=== PATIENT | female | born 1950 | race African-American/Black ===

== ENCOUNTER 2017-01-19 19:45 | Emergency (ER) | payer BC ==
[2017-01-19 19:49] VITALS: BP 139/71; PULSE 84; RESP 20; TEMP 98.4; O2SAT 100
[2017-01-19] MEDS ORDERED: SODIUM CHLORIDE 0.9% FLUSH 5 ML FLUSH IVF PRN (21:30)
[2017-01-19] MEDS ORDERED: KETOROLAC TROMETHAMINE 30 MG/ML (IVP) VIAL IV PUSH ONE (21:45)
[2017-01-19] MEDS ORDERED: ONDANSETRON HCL 4 MG/2 ML VIAL IV PUSH ONE (21:45)
[2017-01-19 21:51] VITALS: BP 152/67; PULSE 83; RESP 20; TEMP 97.8; O2SAT 95
[2017-01-19] MEDS ORDERED: AMLO5TAB2 PO (22:01)
[2017-01-19] MEDS ORDERED: ROSU1TAB8 PO (22:01)
[2017-01-19] MEDS ORDERED: DIOV160T3 PO (22:01)
[2017-01-19] MEDS ORDERED: CALC600T10 PO (22:01)
[2017-01-19] MEDS ORDERED: CALC600T25 (22:01)
[2017-01-19 22:07] LABS: CHLORIDE 104 MEQ/L (98-107); POTASSIUM 3.3 MEQ/L (3.5-5.1); SODIUM (NA) 141 MEQ/L (136-145)
[2017-01-19 22:11] LABS: ANION GAP 11 MEQ/L (5-15); BICARBONATE 26.1 MEQ/L (21.0-32.0); BLOOD UREA NITROGEN 13 MG/DL (7-18)
--- NOTE | 2017-01-19 22:12 | PD ---
HPI Chief Complaint: Abdominal Pain Time Seen by Provider: 21:26 Travel History International Travel<30 days: No Contact w/Intl Traveler<30days: No Traveled to known affect area: No History of Present Illness HPI Patient is 66-year-old female presents emergency Department with acute onset abdominal pain approximately 2 hours prior to arrival. Patient states she did also have nausea without vomiting no diarrhea no constipation. Denies any fevers. Patient states this never happened to her before. Patient is a nurse at the [employer] and is concerned that she might have an obstruction. Her only surgery in the past as a tubal ligation. Patient states her abdominal pain is starting to resolve currently. Describes it as cramping in nature periumbilical and now radiating throughout her entire abdomen. [facility] Past Medical History Narrative Medical Patient with a history of hyperlipidemia, hypertension, tubal ligation, social alcohol. Family history noncontributory. Social History Tobacco Use: No Allergies-Medications (Allergen,Severity, Reaction): Coded Allergies: No Known Allergies (Unverified , 01/19/17) Reported Meds & Prescriptions Reported Meds & Active Scripts Active Reported Calcium + D3 (Calcium Carbonate-Cholecalciferol) 600-200 Mg-Unit Tab 1 Tab PO BID Rosuvastatin (Rosuvastatin Calcium) 20 Mg Tab 20 Mg PO DAILY Diovan Hct (Valsartan-Hydrochlorothiazide) 160-12.5 Mg Tab 1 Tab PO DAILY Amlodipine (Amlodipine Besylate) 5 Mg Tab 5 Mg PO DAILY Review of Systems Except as stated in HPI: all other systems reviewed are Neg Physical Exam Narrative GENERAL: Well-developed well-nourished no apparent distress SKIN: Warm and dry. HEAD: Atraumatic. Normocephalic. EYES: Pupils equal and round. No scleral icterus. No injection or drainage. ENT: No nasal bleeding or discharge. Mucous membranes pink and moist. NECK: Trachea midline. No JVD. CARDIOVASCULAR: Regular rate and rhythm. No murmur appreciated. RESPIRATORY: No accessory muscle use. Clear to auscultation. Breath sounds equal bilaterally. GASTROINTESTINAL: Abdomen soft, non-tender, nondistended. Hepatic and splenic margins not palpable. No peritoneal signs, no rebound no percussive tenderness. Psoas and obturator negative. Dull to percussion. No CVA tenderness. MUSCULOSKELETAL: No obvious deformities. No clubbing. No cyanosis. No edema. NEUROLOGICAL: Awake and alert. No obvious cranial nerve deficits. Motor grossly within normal limits. Normal speech. PSYCHIATRIC: Appropriate mood and affect; insight and judgment normal. Data Data Last Documented VS Vital Signs Date Time Temp Pulse Resp B/P Pulse Ox O2 Delivery O2 Flow Rate FiO2 01/20/17 01:11 83 18 148/67 98 Room Air 01/19/17 23:13 97.7 Orders Complete Blood Count With Diff (01/19/17 21:26) Comprehensive Metabolic Panel (01/19/17 21:) Lipase (01/19/17 21:) Lactic Acid (01/19/17:26) Prothrombin Time / Inr (Pt) (01/19/17:) Act Partial Throm Time (Ptt) (01/19/17:) Urinalysis - C+S If Indicated (01/19/17 21:26) Iv Access Insert/Monitor (01/19/17 21:26) Ecg Monitoring (01/19/17 21:26) Oximetry (01/19/17:26) Sodium Chloride 0.9% Flush (Ns Flush) (01/19/17 21:30) Electrocardiogram (01/19/17 21:26) Ketorolac Inj (Toradol Inj) (01/19/17 21:45) Ondansetron Inj (Zofran Inj) (01/19/17 21:45) Ct Abd/Pel W Iv Contrast(Rout) (01/19/17 ) Sodium Chlor 0.9% 1000 Ml Inj (Ns 1000 M (01/19/17 23:00) Urine Culture (01/19/17 23:00) Iohexol 350 Inj (Omnipaque 350 Inj) (01/19/17 23:36) Labs Laboratory Tests Test 01/19/17 01/19/17 21:40 23:00 White Blood Count 18.8 TH/MM3 Red Blood Count 4.94 MIL/MM3 Hemoglobin 12.9 GM/DL Hematocrit 39.5 % Mean Corpuscular Volume 79.9 FL Mean Corpuscular Hemoglobin 26.1 PG Mean Corpuscular Hemoglobin 32.7 % Concent Red Cell Distribution Width 14.3 % Platelet Count 356 TH/MM3 Mean Platelet Volume 8.4 FL Neutrophils (%) (Auto) 85.1 % Lymphocytes (%) (Auto) 8.8 % Monocytes (%) (Auto) 2.8 % Eosinophils (%) (Auto) 0.6 % Basophils (%) (Auto) 2.7 % Neutrophils # (Auto) 16.0 TH/MM3 Lymphocytes # (Auto) 1.7 TH/MM3 Monocytes # (Auto) 0.5 TH/MM3 Eosinophils # (Auto) 0.1 TH/MM3 Basophils # (Auto) 0.5 TH/MM3 CBC Comment AUTO DIFF Differential Comment AUTO DIFF CONFIRMED Prothrombin Time 10.7 SEC Prothromb Time International 1.0 RATIO Ratio Activated Partial 26.1 SEC Thromboplast Time Sodium Level 141 MEQ/L Potassium Level 3.3 MEQ/L Chloride Level 104 MEQ/L Carbon Dioxide Level 26.1 MEQ/L Anion Gap 11 MEQ/L Blood Urea Nitrogen 13 MG/DL Creatinine 1.20 MG/DL Estimat Glomerular Filtration 55 ML/MIN Rate Random Glucose 179 MG/DL Lactic Acid Level 2.2 mmol/L Calcium Level 9.1 MG/DL Total Bilirubin 0.3 MG/DL Aspartate Amino Transf 15 U/L (AST/SGOT) Alanine Aminotransferase 22 U/L (ALT/SGPT) Alkaline Phosphatase 59 U/L Total Protein 8.1 GM/DL Albumin 3.6 GM/DL Lipase 104 U/L Urine Color YELLOW Urine Turbidity SLIGHT Urine pH 7.0 Urine Specific [place] 1.018 Urine Protein NEG mg/dL Urine Glucose (UA) NEG mg/dL Urine Ketones NEG mg/dL Urine Occult Blood NEG Urine Nitrite NEG Urine Bilirubin NEG Urine Leukocyte Esterase NEG Urine Squamous Epithelial 6-8 /hpf Cells Urine Bacteria MOD /hpf Urine Mucus MOD /lpf Microscopic Urinalysis Comment [facility] Medical Decision Making Medical Screen Exam Complete: Yes Emergency Medical Condition: Yes Interpretation(s) EKG shows normal sinus rhythm with a normal axis and a normal R wave progression. Nonspecific ST flattening in lead 3 and aVF V4 through V6. No previous for comparison and intervals within normal limits. This borderline EKG. Differential Diagnosis Obstruction, gastritis, gastroenteritis, pancreatitis, sepsis unlikely, ileitis , ileus. Narrative Course Patient was roomed in the emergency department, she was given pain medicine, white blood cell count elevated at 18.8 with left shift, lactic acid 2.2, electrolytes within normal limits, creatinine 1.2. Patient was given a liter of normal saline. CT scan is indicated: Last 24 hours Impressions Abdomen/Pelvis CT 2/21/17 0000 Signed Impressions: Service Date/Time: Thursday, January 19, 2017 23:19 - CONCLUSION: 1. Dilation of a mid small bowel with some transition and thickening in the mid small bowel likely related to some degree of small bowel obstruction. The thickening is nonspecific. It could be from enteritis. 2. Colonic diverticula. 3. Suspected hepatic cysts. Myron Ramos MD The results were discussed with the patient is now feeling completely better and is sleeping soundly in no apparent distress. Discussed with her that if there is possible obstruction and I reviewed the images and think is less likely given her clinical presentation she needs to consider admission to the hospital. Patient states she is feeling much better and she knows her body and no swelling to come back. She seems very reliable very content very pleasant. He is reasonable for her to go home at this time. Discussed return to ED criteria and follow-up with her primary care physician. Diagnosis Primary Impression: Abdominal pain Qualified Code: R10.84 - Generalized abdominal pain Additional Impression: Enteritis Disposition: DISCHARGE HOME Condition: Stable Guanako Mckeon MD Jan 19, 2017 22:11
[2017-01-19 22:13] LABS: APTT (PATIENT) 26.1 SEC (24.3-30.1); PROTHROMBIN TIME - PATIENT 10.7 SEC (9.8-11.6)
[2017-01-19 22:14] LABS: ALT (GPT) 22 U/L (10-53); AST (GOT) 15 U/L (15-37); BASOPHIL # 0.5 TH/MM3 (0-0.2); BASOPHIL % 2.7 % (0.0-2.0); EOSINOPHIL # 0.1 TH/MM3 (0-0.4); EOSINOPHIL % 0.6 % (0.0-4.0); GLOMERULAR FILTRATION RATE 55 ML/MIN (>89); HEMATOCRIT 39.5 % (35.0-46.0); LYMPH % 8.8 % (9.0-44.0); LYMPHOCYTE # 1.7 TH/MM3 (1.0-4.8); MEAN CELL VOLUME 79.9 FL (80.0-100.0); MEAN CORPUSCULAR HEMOGLOBIN 26.1 PG (27.0-34.0); MEAN CORPUSCULAR HGB CONC 32.7 % (32.0-36.0); MONO % 2.8 % (0.0-8.0); NEUT % 85.1 % (16.0-70.0); PLATELET COUNT 356 TH/MM3 (150-450); RED BLOOD COUNT 4.94 MIL/MM3 (4.00-5.30); RED CELL DISTRIBUTION WIDTH 14.3 % (11.6-17.2); WHITE BLOOD COUNT 18.8 TH/MM3 (4.0-11.0)
[2017-01-19 22:15] LABS: TOTAL BILIRUBIN ADULT 0.3 MG/DL (0.2-1.0)
[2017-01-19 22:16] LABS: ALKALINE PHOSPHATASE 59 U/L (45-117)
[2017-01-19 22:17] LABS: HEMO FLAGS AUTO DIFF
[2017-01-19 22:38] LABS: SCAN/DIFF AUTO DIFF CONFIRMED
[2017-01-19] MEDS ORDERED: SODIUM CHLOR 0.9% 1000 ML INJ 1,000 ML IV ONE (23:00)
[2017-01-19 23:12] LABS: BLOOD, URINE NEG (NEG); GLUCOSE,URINE NEG (NEG); KETONE, URINE NEG (NEG); NITRITE,URINE NEG (NEG)
[2017-01-19 23:13] VITALS: BP 155/66; PULSE 83; RESP 20; TEMP 97.7; O2SAT 97
[2017-01-19 23:18] LABS: URINE COLOR YELLOW (YELLW/STRAW)
[2017-01-19 23:19] LABS: BACTERIA, URINE MOD /hpf; MUCUS URINE MOD /lpf (OCC)
[2017-01-19 23:21] LABS: COMMENT (UR) CULTURE INDICATED; CULTURE IF INDICATED CULTURE INDICATED
[2017-01-19] MEDS ORDERED: IOHEXOL 350 MG/ML 10 ML VIAL (for RAD DIAG) IV ONE (23:36)
[2017-01-20 00:01] VITALS: BP 152/69; PULSE 82; RESP 20; O2SAT 99
--- NOTE | 2017-01-20 00:19 | RADHPO ---
EXAM DATE/TIME: 01/19/2017 23:19 [place] COMPARISON: No previous studies available for comparison. INDICATIONS : Mid abdominal pain. IV CONTRAST: 75 cc Omnipaque 350 (iohexol) IV ORAL CONTRAST: No oral contrast ingested. RADIATION DOSE: 19.62 CTDIvol (mGy) MEDICAL HISTORY : None SURGICAL HISTORY : None. ENCOUNTER: Initial ACUITY: 1 day PAIN SCALE: 7/10 LOCATION: mid abdomen. TECHNIQUE: Volumetric scanning of the abdomen and pelvis was performed. Using automated exposure control and ad justment of the mA and/or kV according to patient size, radiation dose was kept as low as reasonably achievable to obtain optimal diagnostic quality images. FINDINGS: LOWER LUNGS: The visualized lower lungs are clear. LIVER: There are 2 hypodensities seen in the left lobe of the liver measuring up to 1.5 cm likely representi ng cysts. SPLEEN: Normal size without lesion. PANCREAS: Within normal limits. KIDNEYS: Normal in size and shape. There is no mass, stone or hydronephrosis. ADRENAL GLANDS: Within normal limits. VASCULAR: There is no aortic aneurysm. Vascular calcifications are seen throughout the arterial system. BOWEL/MESENTERY: There is distended small bowel in the midabdomen with prominent debris. There appears to be some thic kening at the transition point. The more distal small bowel is decompressed. Colonic diverticula are seen particularly in the sigmoid region. ABDOMINAL WALL: Within normal limits. RETROPERITONEUM: There is no lymphadenopathy. BLADDER: No wall thickening or mass. REPRODUCTIVE: Within normal limits. INGUINAL: There is no lymphadenopathy or hernia. MUSCULOSKELETAL: There is degenerative change in the lower lumbar spine. CONCLUSION: 1. Dilation of a mid small bowel with some transition and thickening in the mid small bowel likely re lated to some degree of small bowel obstruction. The thickening is nonspecific. It could be from ente ritis. 2. Colonic diverticula. 3. Suspected hepatic cysts. Myron Ramos MD on January 20, 2017 at 0:13 Board Certified Radiologist. This report was verified electronically.
[2017-01-20 01:11] VITALS: BP 148/67; PULSE 83; RESP 18; O2SAT 98
--- NOTE | 2017-01-20 22:14 | EKG ---
Date Performed: 01/19/2017 Time Performed: 22:04:46 PTAGE: 66 years EKG: Sinus rhythm . Extensive ST-T changes are nonspecific Borderline ECG NO PREVIOUS TRACING DOCTOR: Gasper Juarez Interpretating Date/Time 01/20/2017 22:12:45
== END 2017-01-20 01:12 | disposition home or self-care (01) ==
LOC: PHED 19:45
DX: R10.84 Generalized abdominal pain (principal); K52.9 Noninfective gastroenteritis and colitis, unspecified; R94.31 Abnormal electrocardiogram [ECG] [EKG]; I10 Essential (primary) hypertension; E78.5 Hyperlipidemia, unspecified
CPT/HCPCS: 74177; 80053; 81001; 83605; 83690; 85025; 85610; 85730; 87086; 93005; 96361; 96374; 96375; 99284; J1885; J2405; J7030; Q9967